=== PATIENT | male | born 1940 | race African-American/Black ===

== ENCOUNTER → 2019-12-05 09:37 | Outpatient (CLI) | payer MEDICARE, OTHER, SELFPAY | PROVIDERS: PCP Family Medicine; Referring Provider Specialist; Visit Provider Specialist | DX: R13.10 Dysphagia, unspecified (principal); Z53.9 Procedure and treatment not carried out, unspecified reason ==

== ENCOUNTER → 2019-12-10 12:45 | Outpatient (CLI) | payer MEDICARE, OTHER, SELFPAY ==
--- NOTE | 2019-12-10 | DI.RAD.S_ITS ---
PROCEDURE: FL BARIUM SWALLOW INDICATIONS: DYSPHAGIA COMPARISON: [facility], CT, CT ANGIO CHEST PE, 06/29/2019, 4:08. FINDINGS: Function: There is normal esophageal peristalsis except for episodic tertiary contractions within the middle and distal thirds of the esophagus. No elicited gastroesophageal reflux. Morphology: Air-contrast images demonstrate normal mucosal morphology. Single contrast views show no esophageal strictures, extrinsic mass effects, or diverticula. Limited images of the stomach Episodic rate normal appearance. IMPRESSION: The esophagus demonstrates mild dysmotility with episodic tertiary contractions in the middle and distal thirds of the esophagus. No area of stricture or mass lesion is present, no reflux was observed. Dictated by: Rex Cash M.D. on 12/10/2019 at 15:13 Approved by: Rex Cash M.D. on 12/10/2019 at 15:15
== END ==
PROVIDERS: PCP Family Medicine; Referring Provider Specialist; Visit Provider Specialist
DX: R13.10 Dysphagia, unspecified (principal); K22.4 Dyskinesia of esophagus
CPT/HCPCS: 74220

== ENCOUNTER → 2020-08-04 10:44 | Outpatient (CLI) | payer MEDICARE, OTHER, SELFPAY ==
--- NOTE | 2020-08-04 | DI.MRI.S_ITS ---
PROCEDURE: MR PELIS WO/W CON INDICATIONS: Elevated prostate specific antigen [PSA] TECHNIQUE: Noncontrast coronal T1 spin echo and STIR, sagittal T1 spin echo with fat saturation and STIR, axial T1 spin echo and T2 fast spin echo with fat saturation. After the administration of contrast, axial/sagittal/coronal T1 spin echo with fat saturation through the pelvis optimized for prostate visualization. . COMPARISON: None. FINDINGS: Image quality: Excellent. Bones: The visualized bone marrow demonstrates normal signal on all sequences. The overlying cortex appears intact. No abnormal intraosseous enhancement. Soft tissues: No soft tissue masses are visualized. The scanned muscles demonstrate normal overall bulk and internal signal. Subcutaneous tissues appear normal as well. No abnormal soft tissue enhancement. The prostate gland measures up to 5.0 cm AP, 5.3 cm transverse and 6.0 cm craniocaudad. This yields a prostate volume of 82.3 cc utilizing prolate ellipse calculation. 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 The peripheral zone of the prostate appears free of mass lesion on the left and posteriorly but at the right lateral peripheral zone there is a structure that is ovoid and measures up to 1.6 cm AP and 8 mm transverse. This structure shows early arterial phase contrast enhancement without similar peripheral zone enhancement elsewhere. This is faintly seen on T2 axial imaging centered on series 4, image 16 and on early arterial contrast enhancement dynamic imaging centered on series 15, image 24. . The diffusion imaging shows discrete elevated signal intensity in this area on series 5, image 53 and on high B value series 35, image 83. The ADC mapping shows a discrete low signal corresponding to this abnormality on series 36, image 23. The median lobe of the prostate is enlarged resulting in cephalad impingement against the midline of the bladder floor, and no suspected urothelial mass within the bladder lumen is seen. IMPRESSION: There is a discrete ovoid mass lesion that measures up to 8 x 16 mm, along the right lateral peripheral zone of the prostate, without evidence of extension through the prosthetic capsule or extension into adjacent structures nearby. This has early arterial phase contrast enhancement, and shows diffusion imaging and ADC mapping characteristics worrisome for representing prostate carcinoma. Throughout the pelvis visualized there is no evidence of osseous or ruby metastatic disease. No additional lesion elsewhere is found. Dictated by: Rex Cash M.D. on 08/05/2020 at 17:00 Approved by: Rex Cash M.D. on 08/05/2020 at 17:14
== END ==
PROVIDERS: PCP Physician Assistant Medical; Referring Provider Physician Assistant Medical; Visit Provider Urology
DX: R97.20 Elevated prostate specific antigen [PSA] (principal); N42.9 Disorder of prostate, unspecified
CPT/HCPCS: 72197